=== PATIENT | female | born 1970 | race Caucasian/White ===

== ENCOUNTER 2023-01-03 09:43 | Outpatient (CLI) | payer OTHER ==
--- NOTE | 2023-01-04 12:25 | Ultrasound Report ---
LIMITED ULTRASOUND OF LEFT BREAST: 01/03/2023 CLINICAL: Patient returns today to evaluate a focal asymmetry in the left breast. Comparison is made to exams dated: 01/03/2023 ultrasound, 01/03/2023 mammogram, and 12/05/2022 mammogra [facility]. Color flow and real-time ultrasound of the left breast 2 o'clock region were performed. Enrique scale images of the real-time examination were reviewed. There is a 4 mm round cyst in the left breast at 2 o'clock posterior depth. This round cyst is hypoe choic. This correlates smaller than estimated on mammography. This may not correspond to the mammogr aphic finding. Color flow imaging demonstrates that there is no vascularity present. IMPRESSION: PROBABLY BENIGN The 4 mm round cyst in the left breast is probably benign. A follow-up left mammogram and possible ultrasound in 6 months is recommended to demonstrate stabilit y of the mammographic finding and this incidental sonographic finding of probably complicated cyst. Findings and recommendations were conveyed to the patient at time of exam. This exam was interpreted at Station ID: [id number]. Electronically Signed By: Daya garcia/:01/03/2023 11:56:41 Ultrasound BI-RADS: 3 Probably benign BI-RADS CATEGORY: (3) - 3 Mammo and [place] [id number] 6 month follow-up LATERALITY: (L)
--- NOTE | 2023-01-04 12:25 | Mammography Report ---
BILATERAL DIGITAL DIAGNOSTIC MAMMOGRAM 3D/2D WITH MEDIOLATERAL OBLIQUE SPOT COMPRESSION: 01/03/2023 CLINICAL: Patient returns today to evaluate asymmetries in bilateral breasts. Comparison is made to exam dated: 12/05/2022 mammogram - [facility]. There are scattered areas of fibroglandular density in both breasts (category b / 25%-50% glandular t issue). There is a 6 mm oval equal density asymmetry with a spiculated margin in the right breast at 1 o'cloc k middle depth. This is seen in additional views. There is a 1 cm oval low density asymmetry with a spiculated margin in the left breast at 2 o'clock p osterior depth. This is not discretely seen in additional views. This is less prominent. No other significant masses or calcifications are seen in either breast. IMPRESSION: INCOMPLETE: NEEDS ADDITIONAL IMAGING EVALUATION The 6 mm oval equal density asymmetry in the right breast at 1 o'clock middle depth persists and alexus ins indeterminate. An ultrasound is recommended. The 1 cm oval low density asymmetry in the left breast at 2 o'clock posterior depth is indeterminate and ultrasound is recommended. Ultrasound of both these areas was performed immediately following this exam. Based on the Tyrer Cuzick model (a risk assessment model) the patients lifetime risk is 5.7% and her 10 year risk is 1.5%. According to the ACR, ACS, and NCCN guidelines, an annual breast MRI exam isaias g with mammogram is recommended if the patients lifetime risk is 20% or greater. This exam was interpreted at Station ID: [id number]. NOTE: For mammograms, a report in lay terms will be sent to the patient. Approximately 15% of breast malignancies will not be visualized mammographically. In the management of a palpable breast mass, a negative mammogram must not discourage biopsy of a clinically suspicious lesion. Electronically Signed By: Daya garcia/:01/03/2023 11:25:42 ACR BI-RADS Category 0: Incomplete 3340F PARENCHYMAL PATTERN: (A) - The breast(s) demonstrate(s) scattered fibroglandular densities. BI-RADS CATEGORY: (0) - 0 Ultrasound [id number] Immediate follow-up LATERALITY: (B)
--- NOTE | 2023-01-04 12:25 | Ultrasound Report ---
LIMITED ULTRASOUND OF RIGHT BREAST: 01/03/2023 CLINICAL: Patient returns today to evaluate a focal asymmetry in the right breast. Comparison is made to exams dated: 01/03/2023 mammogram and 12/05/2022 mammogram - [facility]. Real-time ultrasound of the right breast 1-2 o'clock region was performed. Enrique scale images of the real-time examination were reviewed. No significant abnormalities were seen sonographically in the right breast. Specifically, no finding to correspond to the patient's persistent screening mammographic abnormality. IMPRESSION: PROBABLY BENIGN No sonographic correlate to the mammographic finding. A follow-up right mammogram and an ultrasound i n 6 months is recommended to ensure stability. Findings and recommendations were conveyed to the pa tient at time of exam. This exam was interpreted at Station ID: [id number]. Electronically Signed By: Daya garcia/:01/03/2023 11:54:03 Ultrasound BI-RADS: 3 Probably benign BI-RADS CATEGORY: (3) - 3 Mammo and US [id number] 6 month follow-up LATERALITY: (R)
== END 2023-01-03 09:44 | disposition home or self-care (01) ==
LOC: DI 09:43
PROVIDERS: ATTEND Nurse Practitioner Family
DX: N60.02 Solitary cyst of left breast (principal); R92.8 Other abnormal and inconclusive findings on diagnostic imaging of breast

== ENCOUNTER 2023-03-03 07:00 | Outpatient (CLI) | payer OTHER | END 2023-03-03 23:59 | disposition home or self-care (01) | LOC: LAB.S 07:00 | PROVIDERS: ATTEND Physician Assistant | DX: J02.9 Acute pharyngitis, unspecified (principal) | CPT/HCPCS: 87070 ==

== ENCOUNTER 2023-08-14 12:31 | Outpatient (CLI) | payer OTHER ==
--- NOTE | 2023-08-15 09:56 | Mammography Report ---
BILATERAL DIGITAL DIAGNOSTIC MAMMOGRAM 3D/2D: 08/14/2023 CLINICAL: Patient returns for a 6 month follow up of bilateral breasts. Comparison is made to exams dated: 01/03/2023 mammogram and 12/05/2022 mammogram - [facility]. There are scattered areas of fibroglandular density in both breasts (category b / 25%-50% glandular t issue). There is a 6 mm oval equal density asymmetry in the right breast at 1 o'clock middle depth. This is not significantly changed and was not seen on the prior ultrasound. There is a 1 cm oval low density asymmetry in the left breast at 2 o'clock posterior depth. This is not significantly changed and was not seen on the prior ultrasound. No other significant masses or calcifications are seen in either breast. IMPRESSION: PROBABLY BENIGN The 6 mm oval equal density asymmetry in the right breast at 1 o'clock middle depth is probably benig n. The 1 cm oval low density asymmetry in the left breast at 2 o'clock posterior depth is probably benig n. A follow-up bilateral mammogram in 6 months is recommended to demonstrate continued stability. Findings and recommendations were conveyed to the patient during today's evaluation. Based on the Tyrer Cuzick model (a risk assessment model) the patient's lifetime risk is 5.7% and her 10 year risk is 1.5%. According to the ACR, ACS, and NCCN guidelines, an annual breast MRI exam isaias g with mammogram is recommended if the patient's lifetime risk is 20% or greater. This exam was interpreted at Station ID: [id number]. NOTE: For mammograms, a report in lay terms will be sent to the patient. Approximately 15% of breast malignancies will not be visualized mammographically. In the management of a palpable breast mass, a negative mammogram must not discourage biopsy of a clinically suspicious lesion. Electronically Signed By: Prakash Hudson M.D. aty/:08/14/2023 13:39:06 ACR BI-RADS Category 3: Probably benign 3343F PARENCHYMAL PATTERN: (A) - The breast(s) demonstrate(s) scattered fibroglandular densities. BI-RADS CATEGORY: (3) - 3 Mammogram [id number] 6 month follow-up LATERALITY: (B)
== END 2023-08-14 12:32 | disposition home or self-care (01) ==
LOC: DI 12:31
PROVIDERS: ATTEND Nurse Practitioner Family
DX: R92.8 Other abnormal and inconclusive findings on diagnostic imaging of breast (principal); R92.323 Mammographic fibroglandular density, bilateral breasts